=== PATIENT | male | born 1975 | race African-American/Black ===

== ENCOUNTER → 2019-10-02 | Outpatient (CLI) | payer OTHER ==
[2019-10-02 13:02] LABS: BASO % 1 % (0-3); EOS # 0.1 x10^3/uL (0.0-0.7); EOS % 4 % (0-3); HEMOGLOBIN 14.1 g/dL (13.0-17.5); LYMPH % 26 % (24-48); MEAN CORPUSCULAR HEMOGLOBIN 31 pg (25-35); MEAN CORPUSCULAR HGB CONC 34 g/dL (31-37); MEAN CORPUSCULAR VOLUME 90 fL (79-100); MONO # 0.4 x10^3/uL (0.0-1.1); MONO % 9 % (0-9); NEUT # 2.3 x10^3uL (1.8-7.7); NEUT % 60 % (31-73); PLATELET COUNT 201 x10^3/uL (140-400); RED BLOOD COUNT 4.57 x10^6/uL (4.30-5.70); RED CELL DISTRIBUTION WIDTH 12.5 % (11.5-14.5); WHITE BLOOD COUNT 3.8 x10^3/uL (4.0-11.0)
[2019-10-02 13:04] LABS: ALBUMIN 3.7 g/dL (3.4-5.0); CALCIUM 8.6 mg/dL (8.5-10.1); GFR 99.2; POTASSIUM 3.4 mmol/L (3.5-5.1)
== END | disposition home or self-care (01) ==
LOC: LAB 12:10
PROVIDERS: ATTEND Surgery
DX: K43.2 Incisional hernia without obstruction or gangrene (principal)
CPT/HCPCS: 36415; 80048; 82040; 85025

== ENCOUNTER → 2021-06-01 | Outpatient (CLI) | payer OTHER ==
--- NOTE | 2021-06-01 08:52 | RAD ---
EXAM: Abdomen CT without intravenous contrast. HISTORY: Epigastric pain. Hernia repair. TECHNIQUE: Computed tomographic images of the abdomen were obtained without contrast. Multiplanar ref ormatting was performed. *One or more of the following individualized dose reduction techniques were utilized for this examina tion: 1. Automated exposure control. 2. Adjustment of the mA and/or kV according to patient size. 3. Use of iterative reconstruction technique. COMPARISON: 04/29/2020. FINDINGS: Evaluation of the lower thorax demonstrates no infiltrate, pleural effusion or suspicious p ulmonary nodule. The heart is normal in size. There is a small hiatal hernia. There is mild distal es ophageal wall thickening. There are 2 small left distal paraesophageal lymph nodes. These are nonspec ific and may be physiologic or reactive in etiology. No hepatic lesion is seen. The gallbladder, panc reas, spleen and adrenal glands are unremarkable. There is a 5 mm partially exophytic cyst along the anterior upper mid zone of the right kidney. There is a surgical anastomosis involving proximal colon. There is no bowel obstruction. There is no abnormal bowel wall thickening. There is diastasis of the ventral abdominal wall musculature with ove rlying linear scar/granulation tissue likely due to prior hernia repair. There are tiny fat-containin g fascial defects within the midline into the left of midline at the superior aspect of the scarring. There is also a 1.6 cm round focus of fat necrosis within the left ventral abdominal wall subcutaneo us fat at the site of scarring. There is a tiny fascial defect to the right of midline slightly super ior to the umbilicus which abuts the wall of a loop of small bowel. No convincing bowel herniation is seen. There are degenerative changes involving the spine. There is no acute or suspicious osseous finding. There are multiple thoracic endplate Schmorl's nodes. There is chronic anterior wedging of T8. IMPRESSION: 1. Diastasis of the ventral abdominal wall musculature with overlying linear scar/relation tissue lik beti due to prior hernia repair. There are a few tiny fat-containing axial defects underlying the site of scarring and the ventral wall of a loop of small bowel abuts a axial defect slightly superior to the umbilicus. No herniated loop of bowel seen. There is a small focus of fat necrosis within the lef t ventral abdominal wall subcutaneous fat at the level of scarring. 2. Small hiatal hernia and mild distal esophageal wall thickening. This may be due to relative underd istention or esophagitis. 3. Tiny right renal cyst. Follow-up is not routinely performed for simple cysts. Electronically signed by: Janeth Nuñez MD (06/01/2021 8:49 AM) [id number]
== END ==
LOC: CT 07:41
PROVIDERS: ATTEND Preventive Medicine Occupational Medicine
DX: K44.9 Diaphragmatic hernia without obstruction or gangrene (principal); N28.1 Cyst of kidney, acquired; M79.89 Other specified soft tissue disorders; M47.816 Spondylosis without myelopathy or radiculopathy, lumbar region
CPT/HCPCS: 74150